=== PATIENT | female | born 1985 | race Caucasian/White ===

== ENCOUNTER 2018-08-11 12:42 | Emergency (ER) | payer MEDICARE, MEDICAID ==
[~2018-08-11] VITALS: Ht 162.6 cm; Wt 88.0 kg
[2018-08-11 12:52] VITALS: BP 100/59; PULSE 80; RESP 20; Ht 162.6 cm; Wt 88.0 kg
[2018-08-11] MEDS ORDERED: ONDANSETRON (ODT) 4 MG TAB ODT STA (13:24)
[2018-08-11] MEDS ORDERED: HYDROCODONE/APAP (5/325) TAB PO ONE (13:30)
[2018-08-11] MEDS ORDERED: HYDR-4011 PO (15:48)
[2018-08-11] MEDS ORDERED: CYCL10TA7 PO (15:48)
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
== END 2018-08-11 17:21 | disposition home or self-care (01) ==
LOC: FTE 12:42
DX: R07.89 Other chest pain (principal); I10 Essential (primary) hypertension
CPT/HCPCS: 71045; 71100; 76775; 81003; 81025